=== PATIENT | female | born 1990 | race Caucasian/White ===

== ENCOUNTER 2017-05-01 03:56 | Inpatient (IN) | payer BC, OTHER ==
[2017-05-01] MEDS ORDERED: LIDOCAINE HCL 50 ML VIAL PERI PRN (05:13)
[2017-05-01] MEDS ORDERED: DEXTROSE 5%-LACTATED RINGERS 1,000 ML IV PRN (05:13)
[2017-05-01] MEDS ORDERED: OXYTOCIN/DEXTROSE 5%-WATER 30 UNITS/500 ML BAG IV ONE ×2 (05:32→08:02)
--- NOTE | 2017-05-01 07:19 | OR ---
Operative Report - Dictated Report Narrative: Spontaneous vaginal delivery of viable female at 0649 on 05/01/2017 with Apgars 8 and 9, weighing 3431 g in AILYN position with left hand presentation at face. Cord clamping delayed approximately 1 minute Placenta delivered complete, intact, with three vessel cord Estimated blood loss: less than 50 ml Lacerations: None History for MU Definition: * The number of deliveries resulting in a live the patient experienced prior to current hospitalization * The previous delivery of live twins or any live multiple gestation is considered one live event. *If primagravida or nulliparous is documented select zero for the number of previous live births. Live Events: 1
[2017-05-01] MEDS ORDERED: oxyCODONE HCL/ACETAMINOPHEN 1 TAB TABLET PO PRN ×2 (08:02)
[2017-05-01] MEDS ORDERED: BENZOCAINE/MENTHOL 81 SPRAY CAN TP PRN (08:02)
[2017-05-01] MEDS ORDERED: SENNOSIDES 8.6 MG TABLET PO PRN (08:02)
[2017-05-01] MEDS ORDERED: GLYCERIN/WITCH HAZEL LEAF 40 APPL BOX TP PRN (08:02)
[2017-05-01] MEDS ORDERED: BISACODYL 10 MG SUPP.RECT RC PRN (08:02)
[2017-05-01] MEDS ORDERED: IBUPROFEN 800 MG TABLET PO PRN (08:02)
[2017-05-01] MEDS ORDERED: HYDROCORTISONE 30 APPL TUBE TP PRN (08:02)
[2017-05-01] MEDS: DOCUSATE SODIUM 100 MG CAPSULE PO SCH (21:56)
[2017-05-02] MEDS: DOCUSATE SODIUM 100 MG CAPSULE PO SCH ×2 (11:01→11:02)
[2017-05-03] MEDS: DOCUSATE SODIUM 100 MG CAPSULE PO SCH (04:43)
[2017-05-03 07:22] VITALS: BP 132/78
--- NOTE | 2017-05-03 11:59 | PN ---
Progess Note - Interim Narrative: 05/03/17 11:58 Patient seen on 05/02/2017 at 0830 AM Patient denies complaints. Lochia wnl Abdomen - soft, nontender Uterus - firm, at umbilicus - 1 No calf tenderness Impression: day #1 - s/p spontaneous vaginal delivery. Plan: Continue routine care
--- NOTE | 2017-05-03 12:00 | PN ---
Subjective - Date and Time Seen Date: 05/03/17 Time: 11:59 - seen at 8:40 AM Objective - Vitals Vitals: Last Vital Signs Temp 36.3 C L 05/03/17 07:20 Pulse 75 05/03/17 07:20 Resp 18 05/03/17 07:20 BP 132/78 05/03/17 07:20 Pulse Ox 98 05/03/17 07:20 Patient denies complaints. Lochia wnl Abdomen - soft, nontender Uterus - firm, at umbilicus - 2 No calf tenderness Impression: day #2 - s/p spontaneous vaginal delivery. Plan: Routine discharge instructions
== END 2017-05-03 11:30 | disposition home or self-care (01) | DRG 775 ==
LOC: OB 03:56
PROVIDERS: ADMIT Obstetrics & Gynecology; ATTEND Obstetrics & Gynecology
PROC: 10E0XZZ Delivery of Products of Conception, External Approach (ICD-10-PCS; principal; 2017-05-01)
PROC: 4A1HXCZ Monitoring of Products of Conception, Cardiac Rate, External Approach (ICD-10-PCS; 2017-05-01)
DX: O80 Encounter for full-term uncomplicated delivery (principal); Z3A.40 40 weeks gestation of pregnancy; Z37.0 Single live birth